=== PATIENT | female | born 1950 | race Caucasian/White ===

== ENCOUNTER 2018-02-08 09:26 | Outpatient (CLI) | payer MEDICARE, OTHER ==
[~2018-02-08 09:26] MED LIST: Iopamidol 370 76% 100 ML VIAL ONE
--- NOTE | 2018-02-08 15:46 | CT ---
CT ABDOMEN AND PELVIS WITH IV AND ORAL CONTRAST: 02/08/18 HISTORY: Right lower quadrant pain. FINDINGS: Lung bases are clear. Small cysts are scattered throughout the liver. Larger exophytic cyst projects superiorly from the right kidney. It measures up to 4.5 cm. No evidence of urinary tract obstruction. The spleen, adrenal glands, and pancreas are unremarkable. Scattered nonspecific lymph nodes through out the retroperitoneum and mesentery. Scattered small diverticula arise from the colon without janneth cent inflammation. Urinary bladder is unremarkable. The uterus and ovaries are surgically absent. Th e appendix is not inflamed. Marker was placed at the anterior right lower quadrant in region of pain. No underlying abnormalities are evident. Prominent degenerative changes lumbar spine. IMPRESSION: 1. Postoperative changes. 2. Left renal cyst. 3. No significant abnormalities are demonstrated to explain right lower quadrant pain. POS: [facility]
== END 2018-02-08 09:27 | disposition home or self-care (01) ==
LOC: SCSCT 09:26
PROVIDERS: ATTEND Family Medicine
DX: R10.31 Right lower quadrant pain (principal); N28.1 Cyst of kidney, acquired; Z90.710 Acquired absence of both cervix and uterus; Z90.722 Acquired absence of ovaries, bilateral
CPT/HCPCS: 74177; 82565

== ENCOUNTER 2018-04-02 08:18 | Outpatient (CLI) | payer MEDICARE, OTHER ==
[2018-04-02] MEDS ORDERED: Iopamidol 370 76% 100 ML VIAL ONE (09:00)
--- NOTE | 2018-04-02 10:15 | CT ---
CT ABDOMEN WITH AND WITHOUT CONTRAST: Technique: Multiple contiguous axial images were obtained through the abdomen without IV enhancement. Post contrast images were obtained in portal venous phase and delayed venous phase following urograp hic protocol. Indications: Renal mass. Right renal cyst which was previously described on CT abdomen 02-08-18. Comparison: CT 02-08-18. That exam revealed a multiloculated large cystic lesion superior pole right kidney. FINDINGS: The cystic mass in the superior pole of the right kidney is again noted. This mass does demonstrate i nternal septations most prominent along its medial side. These septations are seen on post contrast i mages as they do show mild enhancement. There is no significant internal enhancement of this cystic m ass. The densities are cystic measured at 3 Hounsfield on the noncontrast and 6-7 Hounsfield units on post contrast images. Size of this mass has not changed. It is measured at 4.7 cm craniocaudal x 4.7 cm width in the coronal plane today which is stable from the 02-08-18 exam. There are one or two tiny low density foci in the lower pole of the right kidney which are subcentime ter and not well characterized. Also in the left kidney are tiny subcentimeter foci of low density suggesting tiny subcentimeter cyst s. Kidneys otherwise are unremarkable. There is no evidence hydronephrosis or renal calculus. The numerous hepatic cystic lesions are again seen and are stable. The spleen and pancreas are unrema rkable. Visualized bowel loops are unremarkable. Abdominal aorta shows mild atherosclerotic change. IMPRESSION: 1. Cystic mass involving the superior pole of the right kidney. There are internal septations which d emonstrate mild enhancement on the post contrast study. No internal enhancement. This complex cystic mass is stable from 02-08-18. 2. Numerous small hepatic cysts also remain stable. 3. There are other tiny low density foci in both kidneys which are too small to adequately characteri ze and remain stable. POS: [facility]
[2018-04-02 11:26] LABS: Bilirubin Negative (Negative); Blood, Urine Negative (Negative); Clarity Clear (Clear); Glucose, Urine (Dipstick) Negative (Negative); Leukocyte Negative (Negative); Nitrite Negative (Negative); Protein, Urine (Dipstick) Negative (Neg-Trace); Urobilinogen 0.2 mg/dL (0.2-1.0)
[2018-04-02 11:35] LABS: Anion Gap 11 mmol/L (10-20); BUN (Urea Nitrogen) 13 mg/dL (9.8-20.1); Calc. Creatinine Clearance 0 mL/min (70-130); Calcium 10.1 mg/dL (7.8-10.44); Carbon Dioxide 29 mmol/L (23-31); Chloride 103 mmol/L (98-107); Estimated GFR-MDRD 83; Glucose 64 mg/dL (80-115); Potassium 4.1 mmol/L (3.5-5.1); Sodium 139 mmol/L (136-145)
[2018-04-02 11:41] LABS: Bacteria/HPF None Seen HPF (None Seen); RBC/HPF None Seen HPF (0-3); Squamous Epithelial 0-3 HPF (0-3); WBC/HPF None Seen HPF (0-3)
== END 2018-04-02 08:19 | disposition home or self-care (01) ==
LOC: SCSCT 08:18
PROVIDERS: ATTEND Urology
DX: N28.1 Cyst of kidney, acquired (principal); N95.2 Postmenopausal atrophic vaginitis; K76.89 Other specified diseases of liver; R93.421 Abnormal radiologic findings on diagnostic imaging of right kidney; R93.422 Abnormal radiologic findings on diagnostic imaging of left kidney
CPT/HCPCS: 36415; 74170; 80048; 81001; 82565; 87086

== ENCOUNTER 2018-04-19 14:46 | Outpatient (CLI) | payer MEDICARE, OTHER ==
--- NOTE | 2018-04-19 16:54 | RAD ---
FOUR VIEWS OF THE LEFT KNEE 04/19/18 COMPARISON: None. HISTORY: Knee pain for six months. FINDINGS: No displaced fracture or evidence of dislocation. Mild patellofemoral joint space narrowing. No knee joint effusion. IMPRESSION: No acute osseous abnormality. POS: [facility]
== END 2018-04-19 14:47 | disposition home or self-care (01) ==
LOC: SCSRAD 14:46
PROVIDERS: ATTEND Family Medicine
DX: M25.562 Pain in left knee (principal)

== ENCOUNTER 2018-07-24 10:31 | Outpatient (CLI) | payer MEDICARE, OTHER ==
--- NOTE | 2018-07-24 12:02 | CT ---
CT ABDOMEN WITH AND WITHOUT IV CONTRAST: Indication: Follow up complex cystic mass. Contrasts: 99 cc of Isovue 370 Comparison: 04-02-18, 02-08-18 FINDINGS: The complex cystic lesion involving the superior pole of the right kidney measures 4.8 x 5.1 x 4.7 cm and is relatively stable in size to the comparison examination. There is some thin internal calcific ations seen within a few of the septa as well as some mild internal septal enhancement. Additional sm aller cysts within the kidneys are stable. There are multiple hepatic cysts. The adrenal glands, pancreas, and spleen appear within normal limits. No free fluid is evident. No acute osseous abnormality is evident. Small subcentimeter pulmonary nodules within the left lower lobe are stable on Image 8 and Image 10, Series 2. IMPRESSION: Stable Bosniak II cyst involving the superior pole of the right kidney. Findings called to Dr. Elise lema at 11:44 a.m. on 07-24-18. Code CR. POS: [facility]
== END 2018-07-24 10:32 | disposition home or self-care (01) ==
LOC: SCSCT 10:31
PROVIDERS: ATTEND Urology
DX: N28.1 Cyst of kidney, acquired (principal)
CPT/HCPCS: 74170

== ENCOUNTER 2019-02-07 13:27 | Outpatient (CLI) | payer MEDICARE, OTHER ==
--- NOTE | 2019-02-07 15:39 | MRI ---
MRI BRAIN WITHOUT CONTRAST: 02/07/2019 HISTORY: Vertigo and neuropathy. COMPARISON: None. TECHNIQUE: Multiplanar, multisequence MR imaging of the brain obtained without contrast. FINDINGS: The diffusion weighted imaging demonstrates no evidence for acute infarction. Axial gradient echo dano ging demonstrates no evidence for intracranial hemorrhage. There is no midline shift or mass effect. No ventricular enlargement. Regional bone marrow signal intensity appears within normal limits. The visualized paranasal sinuses/mastoid air cells demonstrate mild mucosal thickening of the sphenoi d sinuses, frontal sinuses and ethmoid air cells bilaterally. Arterial flow voids at the axial level of the skull base appear grossly unremarkable on the T2 weight ed imaging. The distal right vertebral artery appears hypoplastic. IMPRESSION: No acute infarction or intracranial hemorrhage. POS: [facility]
== END 2019-02-07 13:28 | disposition home or self-care (01) ==
LOC: MRI 13:27
PROVIDERS: ATTEND Family Medicine
DX: G62.9 Polyneuropathy, unspecified (principal); R42 Dizziness and giddiness
CPT/HCPCS: 70551

== ENCOUNTER 2019-02-12 08:32 | Outpatient (CLI) | payer MEDICARE, OTHER ==
[2019-02-12] MEDS ORDERED: Iopamidol 370 76% 100 ML VIAL ONE (09:00)
--- NOTE | 2019-02-12 09:45 | CT ---
Exam: Abdomen CT with and without contrast HISTORY: Follow-up for renal cyst. COMPARISON: 07/24/2018, 04/02/2018, 02/08/18. TECHNIQUE: Abdomen CT is performed with and without contrast following urogram protocol. Coronal refo rmatted images are submitted for interpretation FINDINGS: Lung bases: Clear Liver: Stable hypodensities, likely representing hepatic cysts. No enhancing masses Spleen: Appropriate enhancement Pancreas: Appropriate enhancement Adrenal glands: Symmetric enhancement Lymph nodes: No gastrohepatic, retrocrural or periportal lymphadenopathy Portal vein: Patent Gallbladder: Unremarkable Kidneys: Symmetric enhancement. Subcentimeter hypodensities in the left renal cortex are unchanged fr om the examination performed in January 2018. Though the lesions are too small to characterize, cortical cysts are statistically favored. No evidence of left-sided hydronephrosis or dilatation of t he visualized left ureter. Redemonstration of a lobulated predominantly hypodense lesion involving the right upper pole cortex. Noncontrast images demonstrate subtle linear densities likely representi ng small calcifications. Postcontrast images demonstrate small thin septations, unchanged. This lesion measures 5.2 cm mediolateral x 4.4 cm anterior-posterior x 5.2 cm craniocaudal. In January, this lesion measured 4.5 x 4.6 x 4.6 cm. On the most recent prior, this lesion measured 4.9 x 4.7 x 5.1 cm. No new lesions in the right renal cortex. Mesentery: No mass, nephropathy, free air or free fluid Alimentary canal: Limited evaluation due to lack of oral contrast administration. No evidence of gómez l obstruction. The ileocecal junction is normal. Normal caliber appendix. Scattered fecal material in a nondistended/nondilated colon. No lytic or blastic lesions in the osseous structures IMPRESSION: Redemonstration of a slightly complex (Bosniak 2) cystic lesion in the upper pole of the right kidney . Minimal calcifications and septae are redemonstrated. Transcribed Date/Time: 02/12/2019 10:03 AM
== END 2019-02-12 08:33 | disposition home or self-care (01) ==
LOC: SCSCT 08:32
PROVIDERS: ATTEND Urology
DX: N28.1 Cyst of kidney, acquired (principal)
CPT/HCPCS: 74170; Q9967

== ENCOUNTER 2019-08-09 10:33 | Outpatient (CLI) | payer MEDICARE, OTHER ==
--- NOTE | 2019-08-09 14:24 | MRI ---
MRI CERVICAL SPINE WITHOUT CONTRAST: HISTORY: R20.1, hypoesthesia of skin. COMPARISON: None. FINDINGS: The cervical tonsils remain at the level of the foramen magnum. No acute fracture. Modic end plate changes at C3-4. Modic II end plate changes at C5-6 and C6-7 as well as T1-2. No marrow infiltrates or process. No acute fracture. No malalignment. There is mild increased cord signal at the level of C3-4 due to cord abutment. The left vertebral artery is dominant. Adequate vertebral flow voids. Paraspinal soft tissues are unremarkable. Levels are as follows: C2-3: 1 mm anterolisthesis. Moderate hypertrophic facet arthrosis. Mild bilateral neural foraminal narrowing. C3-4: There is moderate to severe bilateral facet arthropathy with facet effusions. 2 mm anterolist hesis. Posterior displacement of disk material as an adaptation to subluxation. Superimposed right lateral recess disk herniation. Severe right and left neural foraminal narrowing with nerve root imp ingement. There is also abutment of the anterior cord. Mild ligamentum flavum hypertrophy. Spinal canal is narrowed to approximately 6-7 mm with increased cord signal. C4-5: Mild degenerative disk space height loss. Severe facet arthropathy with joint effusions. 2 m m anterolisthesis. Mild disk bulge. Mild uncinate process hypertrophy. Moderate left and mild righ t neural foraminal narrowing. C5-6: Advanced degenerative disk space height loss. Large circumferential disk-osteophyte complex. There is abutment of the anterior cord. The spinal canal measures approximately 7 mm. Moderate to severe left and moderate right neural foraminal narrowing. Severe hypertrophic facet arthrosis. C6-7: Advanced degenerative disk space height loss. Circumferential disk-osteophyte complex. Mild effacement of the ventral CSF space of the spinal canal measuring 7-8 mm. Moderate to severe bilater al neural foraminal narrowing. Moderate hypertrophy facet arthrosis. C7-T1: There is a mild disk bulge. Moderate facet arthrosis. Mild ligamentum flavum hypertrophy. Minimal effacement of the ventral CSF space. Moderate left neural foraminal narrowing. IMPRESSION: 1. Multilevel high-grade spondylosis, greatest in the upper cervical spine. 2. Spinal canal narrowing with cord abutment at C3-4 with associated increased cord signal. Neurosu rgical consultation is advised. POS: [facility]
== END 2019-08-09 10:34 | disposition home or self-care (01) ==
LOC: SCSMRI 10:33
PROVIDERS: ATTEND Psychiatry & Neurology Neurology
DX: R20.1 Hypoesthesia of skin (principal); M47.812 Spondylosis without myelopathy or radiculopathy, cervical region; M48.02 Spinal stenosis, cervical region
CPT/HCPCS: 72141

== ENCOUNTER 2019-08-22 12:36 | Outpatient (CLI) | payer MEDICARE, OTHER ==
[2019-08-22 15:49] LABS: Hemoglobin 14.4 g/dL (12.0-16.0); Mean Corpuscular HGB CONC 32.6 g/dL (32.0-36.0); Mean Corpuscular Hemoglobin 31.9 pg (27.0-31.0); Mean Corpuscular Volume 97.8 fL (78.0-98.0); Mean Platelet Volume 7.7 fL (7.4-10.4); Platelet Count 317 thou/uL (130-400); RBC Distribution Width 12.2 % (11.5-14.5); White Blood Cell (WBC) Count 8.6 thou/uL (4.8-10.8)
[2019-08-22 16:09] LABS: Anion Gap 14 mmol/L (10-20); BUN (Urea Nitrogen) 10 mg/dL (9.8-20.1); Calc. Creatinine Clearance 0 mL/min (70-130); Calcium 9.5 mg/dL (7.8-10.44); Carbon Dioxide 26 mmol/L (23-31); Chloride 105 mmol/L (98-107); Estimated GFR-MDRD 84; Glucose 84 mg/dL (80-115); Potassium 3.8 mmol/L (3.5-5.1); Sodium 141 mmol/L (136-145)
[2019-08-23 11:42] LABS: SARS-CoV-2 MS2 Positive; SARS-CoV-2 N Gene Negative; SARS-CoV-2 S Gene Negative; SARS-CoV-2 orf1ab Negative
== END 2019-08-22 12:37 | disposition home or self-care (01) ==
LOC: LABBT 12:36
PROVIDERS: ATTEND Neurological Surgery
DX: Z01.812 Encounter for preprocedural laboratory examination (principal); Z11.59 Encounter for screening for other viral diseases; M47.12 Other spondylosis with myelopathy, cervical region
CPT/HCPCS: 80048; 85027; U0002; 87635; U0003

== ENCOUNTER 2019-08-26 08:23 | Observation (INO) | payer MEDICARE, OTHER ==
[2019-08-26] MEDS ORDERED: Phytonadione 1 MG in Sodium Chloride 0.9% 50 ML IVPB SCH (10:45)
[2019-08-26] MEDS ORDERED: Clindamycin/D5W 900 mg/50 ml Premix Bag ONE (11:18)
[2019-08-26] MEDS ORDERED: Levofloxacin 500 mg/D5W 100 ml Premix Bag ONE (11:18)
[2019-08-26] MEDS ORDERED: Fentanyl 100 MCG/2 ML VIAL ONE ×3 (11:39→13:17)
[2019-08-26] MEDS ORDERED: Lidocaine 2% Jelly 5 ML TUBE ONE (11:39)
[2019-08-26] MEDS ORDERED: Succinylcholine Chloride 20 MG/ML 10 ml SYRINGE FS ONE (11:40)
[2019-08-26] MEDS ORDERED: PROPOFOL 200 MG/20 ML VIAL ONE (11:40)
[2019-08-26] MEDS ORDERED: Glycopyrrolate 0.2 MG/ML 5 ML SYRINGE ONE (11:40)
[2019-08-26] MEDS ORDERED: Dexamethasone 20 MG/5 ML VIAL ONE (11:40)
[2019-08-26] MEDS ORDERED: Ondansetron PF 4 MG/2 ML Vial ONE (11:40)
[2019-08-26] MEDS ORDERED: Lidocaine 1% PF 5 ML VIAL ONE (11:40)
[2019-08-26] MEDS ORDERED: Rocuronium Bromide 10 MG/ML (10ML VIAL) ONE (11:40)
[2019-08-26] MEDS ORDERED: PHENYLEPHRINE-NS 100 MCG/ML 10 ML SYRINGE ONE (11:40)
--- NOTE | 2019-08-26 13:09 | OP ---
DATE OF PROCEDURE: 08/26/2019 FRAME POLISHER: Dominique Gama PA-C PROCEDURE PERFORMED: Anterior cervical diskectomy C3-C4, interbody arthrodesis, intervertebral biomechanical device, local morselized autograft, demineralized bone matrix, anterior titanium instrumentation C3-C4. DESCRIPTION OF PROCEDURE: The patient was brought to the operating room and intubated. She was positioned supine with the head in modest extension on a gel-filled donut. An incision was made in the right precervical area and dissected medial to the sternocleidomastoid muscle, identified the anterior cervical spinal, and the level was confirmed by x-ray. We debrided the anterior osteophytes, placed distraction across the disk spaces, and using operative microscope and microdissection techniques, we completely decompressed the intervertebral disk beneath the posterior longitudinal ligament, decompressing the dura from foramen to foramen. Next, bony endplates were decorticated for the purpose of arthrodesis and appropriate-sized intervertebral biomechanical PEEK device was brought into the field, filled with demineralized bone matrix and local morselized autograft, and tapped in place securely at C3-C4. Next, an anterior plate was brought into the field and secured at C3 and C4 using two 14-mm screws at each level. The wound was then extensively irrigated and MAC hemostasis was secured and the wound was closed in anatomic layers. Job ID: [id number]
[2019-08-26] MEDS ORDERED: Mag-Al 1200 mg/1200 mg/30 ML UDCUP PO PRN (20:46)
[2019-08-26] MEDS ORDERED: Ondansetron PF 4 MG/2 ML Vial IVP PRN (20:46)
[2019-08-26] MEDS ORDERED: traMADol HCl 50 MG TAB PO PRN ×2 (20:46)
[2019-08-26] MEDS ORDERED: Meperidine HCl/PF 25 MG/ML VIAL SLOW IVP PRN (20:46)
[2019-08-26] MEDS ORDERED: diphenhydrAMINE 50 MG/ML VIAL IVP PRN (20:46)
[2019-08-26] MEDS ORDERED: Promethazine 25 MG TAB PO PRN (20:46)
[2019-08-26] MEDS ORDERED: Sodium Chloride 0.9% 1,000 ML IV SCH (20:46)
[2019-08-26] MEDS ORDERED: Promethazine HCl 25 MG/ML VIAL IM PRN (20:46)
[2019-08-26] MEDS ORDERED: diphenhydrAMINE 25 MG CAP PO PRN (20:46)
[2019-08-26] MEDS ORDERED: Promethazine HCl 12.5 MG SUPP PR PRN (20:46)
[2019-08-26] MEDS ORDERED: tiZANidine HCl 4 MG TAB PO PRN (20:46)
[2019-08-26 21:41] VITALS: BMI 25.2
[2019-08-27 03:57] VITALS: TEMP 97.5
[2019-08-27 08:20] VITALS: BP 135/77
--- NOTE | 2019-08-27 12:45 | DIS ---
DATE OF ADMISSION: 08/26/2019 DATE OF DISCHARGE: 08/27/2019 HOSPITAL COURSE: The patient is a 69-year-old female, who was recently evaluated in our office for cervical myelopathy and found to have significant cervical stenosis at C3-C4. She underwent C3-C4 ACDF on 08/26/2019. Following the surgery, she was transitioned to the Med/Surg floor, where her pain was well controlled with p.o. medications, she was tolerating regular diet. She did require I and O cath x1 due to urinary retention, but is now urinating without difficulty. OBJECTIVE: On exam this morning, she is awake, alert, in no acute distress. She has free active range of motion of all extremities. No focal motor weakness. She has some mild hoarseness to her voice. Her incision is clean, dry, and intact. PLAN: We will plan to dismiss the patient to home. I have discussed home care precautions. We will follow up with the patient in 2 weeks. 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 No script discrepancies. Job ID: [id number]
== END 2019-08-27 09:50 | disposition home or self-care (01) ==
LOC: SDC 08:23 → SURG A 19:43
PROVIDERS: ADMIT Neurological Surgery; ATTEND Neurological Surgery
PROC: 0RG20A0 Fusion of 2 or more Cervical Vertebral Joints with Interbody Fusion Device, Anterior Approach, Anterior Column, Open Approach (ICD-10-PCS; principal; 2019-08-26)
PROC: 0RG2070 Fusion of 2 or more Cervical Vertebral Joints with Autologous Tissue Substitute, Anterior Approach, Anterior Column, Open Approach (ICD-10-PCS; 2019-08-26)
PROC: 0RT30ZZ Resection of Cervical Vertebral Disc, Open Approach (ICD-10-PCS; 2019-08-26)
DX: M47.12 Other spondylosis with myelopathy, cervical region (principal); E78.5 Hyperlipidemia, unspecified; N28.1 Cyst of kidney, acquired; Z79.899 Other long term (current) drug therapy; Z88.0 Allergy status to penicillin; Z88.6 Allergy status to analgesic agent; Z88.8 Allergy status to other drugs, medicaments and biological substances; Z88.1 Allergy status to other antibiotic agents; Z88.5 Allergy status to narcotic agent; Z91.040 Latex allergy status; Z91.048 Other nonmedicinal substance allergy status
CPT/HCPCS: 20930; 20936; 22554; 22853; 76000; C1713; C1776 ×2; G0378 ×2; J0690; J1100; J1956; J2001; J2405; J2704; J3010; J3430; J3490

== ENCOUNTER 2019-09-06 13:56 | Outpatient (CLI) | payer MEDICARE, OTHER ==
--- NOTE | 2019-09-06 15:39 | RAD ---
THREE VIEWS CERVICAL SPINE: 09/06/19 COMPARISON: None. HISTORY: C3-4 fusion. FINDINGS: Three views of the cervical spine shows the patient to be status post anterior fusion of C3 and C4 wi th a plate and screws. Disc spacer seen in good position of the disc spaces. Moderate degenerative ch anges are seen in the lower cervical spine. There is grade I anterolisthesis of C4 on C5. Posterior f acet arthrosis is seen throughout the cervical spine. No prevertebral soft tissue swelling is seen. IMPRESSION: Postsurgical changes at C3-4 without evidence of complication. POS: [facility]
== END 2019-09-06 13:57 | disposition home or self-care (01) ==
LOC: SCSRAD 13:56
PROVIDERS: ATTEND Neurological Surgery
DX: M47.12 Other spondylosis with myelopathy, cervical region (principal); Z98.1 Arthrodesis status
CPT/HCPCS: 72040

== ENCOUNTER 2019-11-04 10:40 | Outpatient (CLI) | payer MEDICARE, OTHER ==
--- NOTE | 2019-11-04 11:01 | RAD ---
EXAM: Cervical spine 3 views: HISTORY: Cervical spondylosis with myelopathy COMPARISON: 09/06/2019 FINDINGS: Anterior cervical fusion changes at C3-C4 with minimal stable anterolisthesis of C4 on C5. No evidence for acute fracture or dislocation or significant acute process. No evidence for other significant malalignment. Disc spaces are adequately preserved. No evidence for a focal bone lesion. IMPRESSION: Anterior cervical fusion changes at C3-C4 with stable anterolisthesis of C4 on C5. Stable exam from
== END 2019-11-04 10:41 | disposition home or self-care (01) ==
LOC: TBSIIMAG 10:40
PROVIDERS: ATTEND Neurological Surgery
DX: M47.12 Other spondylosis with myelopathy, cervical region (principal); M43.12 Spondylolisthesis, cervical region; Z98.1 Arthrodesis status
CPT/HCPCS: 72040

== ENCOUNTER 2020-08-17 13:20 | Outpatient (CLI) | payer MEDICARE, OTHER | END 2020-08-17 13:21 | disposition home or self-care (01) | LOC: SCSRAD 13:20 | PROVIDERS: ATTEND Family Medicine | DX: M47.26 Other spondylosis with radiculopathy, lumbar region (principal); M43.16 Spondylolisthesis, lumbar region; M51.16 Intervertebral disc disorders with radiculopathy, lumbar region | CPT/HCPCS: 72120 ==

== ENCOUNTER 2022-04-21 16:41 | Outpatient (CLI) | payer MEDICARE, OTHER | END 2022-04-21 16:42 | disposition home or self-care (01) | LOC: RAD 16:41 | PROVIDERS: ATTEND Family Medicine | DX: J40 Bronchitis, not specified as acute or chronic (principal) | CPT/HCPCS: 71046 ==

== ENCOUNTER 2022-06-10 13:07 | Outpatient (CLI) | payer MEDICARE, OTHER | END 2022-06-10 13:08 | disposition home or self-care (01) | LOC: SCSRAD 13:07 | PROVIDERS: ATTEND Family Medicine | DX: R05.2 Subacute cough (principal) | CPT/HCPCS: 71046 ==

== ENCOUNTER 2022-12-28 10:22 | Outpatient (CLI) | payer MEDICARE, OTHER | END 2022-12-28 10:23 | disposition home or self-care (01) | LOC: ULT 10:22 | PROVIDERS: ATTEND Urology | DX: N28.1 Cyst of kidney, acquired (principal) | CPT/HCPCS: 76770 ==

== ENCOUNTER 2023-02-02 15:46 | Outpatient (CLI) | payer MEDICARE, OTHER | END 2023-02-02 15:47 | disposition home or self-care (01) | LOC: ULT 15:46 | PROVIDERS: ATTEND Psychiatry & Neurology Neurology | DX: G62.9 Polyneuropathy, unspecified (principal) | CPT/HCPCS: 93923 ==